=== PATIENT | male | born 1995 | race Caucasian/White ===

== ENCOUNTER 2017-08-18 11:17 | Emergency (ER) | payer MEDICAID ==
[~2017-08-18] VITALS: Ht 185.4 cm; Wt 59.0 kg
[~2017-08-18 11:17] MED LIST: ESCI20TA PO; NO HOME MEDS; TRAZ-146 PO
[2017-08-18 11:25] VITALS: BP 144/94
[2017-08-18] MEDS ORDERED: AMOX500C2 PO (12:27)
[2017-08-18] MEDS ORDERED: HYDR-3965 PO (12:27)
== END 2017-08-18 12:46 | disposition home or self-care (01) ==
LOC: ER 11:17
DX: K08.89 Other specified disorders of teeth and supporting structures (principal); J45.909 Unspecified asthma, uncomplicated; F12.10 Cannabis abuse, uncomplicated; F11.10 Opioid abuse, uncomplicated; Z88.8 Allergy status to other drugs, medicaments and biological substances; Z88.1 Allergy status to other antibiotic agents
CPT/HCPCS: 99283

== ENCOUNTER 2017-08-31 16:09 | Emergency (ER) | payer MEDICAID ==
[~2017-08-31] VITALS: Ht 182.9 cm; Wt 68.0 kg
[~2017-08-31 16:09] MED LIST changes: +AMOX500C2 PO; +HYDR-3965 PO
[2017-08-31 16:33] VITALS: BP 121/64
== END 2017-08-31 17:32 | disposition home or self-care (01) ==
LOC: ER 16:10
DX: L21.0 Seborrhea capitis (principal); J45.909 Unspecified asthma, uncomplicated; F12.10 Cannabis abuse, uncomplicated; F11.10 Opioid abuse, uncomplicated; Z79.899 Other long term (current) drug therapy
CPT/HCPCS: 99284

== ENCOUNTER 2017-09-08 21:40 | Emergency (ER) | payer MEDICAID ==
[~2017-09-08] VITALS: Ht 182.9 cm; Wt 70.1 kg
[2017-09-08 21:52] VITALS: BP 137/87
== END 2017-09-09 01:23 | disposition left against medical advice (07) ==
LOC: ER 21:40
DX: R21 Rash and other nonspecific skin eruption (principal); Z53.21 Procedure and treatment not carried out due to patient leaving prior to being seen by health care provider

== ENCOUNTER 2018-04-05 22:05 | Emergency (ER) | payer MEDICAID ==
[~2018-04-05] VITALS: Ht 185.4 cm; Wt 69.0 kg
[~2018-04-05 22:05] MED LIST changes: -AMOX500C2 PO; -HYDR-3965 PO; -TRAZ-146 PO; +TRAZ-219 PO
[2018-04-05 22:18] VITALS: BP 138/87
== END 2018-04-06 01:41 | disposition left against medical advice (07) ==
LOC: ER 22:05
DX: K13.79 Other lesions of oral mucosa (principal); Z53.21 Procedure and treatment not carried out due to patient leaving prior to being seen by health care provider

== ENCOUNTER 2018-12-02 19:26 | Emergency (ER) | payer MEDICAID ==
[~2018-12-02] VITALS: Ht 185.4 cm; Wt 75.0 kg
[2018-12-02 20:04] LABS: BASOPHILS % (AUTO) 0.6 % (0-1); EOSINOPHILS % (AUTO) 0.4 % (0-6); HEMATOCRIT 46.5 % (42.0-52.0); HEMOGLOBIN 15.9 g/dl (14.0-17.9); LYMPHOCYTES # (AUTO) 1.4 X10'3 (1.1-4.8); LYMPHOCYTES % (AUTO) 22.2 % (21-51); MEAN CORPUSCULAR HGB CONC 34.2 g/dL (33.0-36.5); MEAN CORPUSCULAR VOLUME 93.7 FL (78-98); MEAN PLATELET VOLUME 8.6 FL (7.4-10.4); MONOCYTES # (AUTO) 0.6 X10'3 (0-0.9); NEUTROPHILS # (AUTO) 4.3 X10'3 (1.8-7.7); NEUTROPHILS % (AUTO) 66.8 % (42-75); PLATELET COUNT 213 X10'3 (140-440); RED BLOOD COUNT 4.96 X10'6 (4.70-6.10); RED CELL DISTRIBUTION WIDTH 13.7 % (11.5-14.5); WHITE BLOOD COUNT 6.4 X10'3 (4.5-11.0)
[2018-12-02 20:17] LABS: ALANINE AMINOTRANSFERASE 570 U/L (12-78); ALBUMIN 4.3 G/DL (3.4-5.0); ALBUMIN/GLOBULIN RATIO 1.2 (1.1-1.5); ALKALINE PHOSPHATASE 159 IU/L (46-116); ANION GAP 10 (8-16); ASPARTATE AMINO TRANSFERASE 234 U/L (10-37); BILIRUBIN,TOTAL 0.9 MG/DL (0.1-1.0); BLOOD UREA NITROGEN 7 MG/DL (7-18); BUN/CREATININE RATIO 8.8 (5.4-32.0); CALCIUM 9.3 MG/DL (8.5-10.1); CHLORIDE 101 MMOL/L (99-107); GLUCOSE 132 MG/DL (70-104); POTASSIUM 3.7 MMOL/L (3.5-5.1); SODIUM 138 MMOL/L (135-145); TOTAL CARBON DIOXIDE 27.3 MMOL/L (24-32); eGFR > 90 ML/MIN
[2018-12-02 20:40] LABS: CLARITY,URINE CLEAR (Clear); COLOR,URINE AMBER (Yellow); GLUCOSE, URINE NEGATIVE (Neg); KETONES,URINE TRACE mg/dl (Neg); LEUKOCYTE ESTERASE ,URINE NEGATIVE (Neg); NITRITES, URINE NEGATIVE (Neg); OCCULT BLOOD,URINE SMALL (Neg); PH,URINE 8.5 (4.8-8.0); PROTEIN,URINE 30 mg/dl (Neg); UA COLLECTION TYPE CLN CATCH MIDSTREAM
[2018-12-02 20:50] LABS: LIPASE 71 U/L (73-393)
[2018-12-02 20:54] LABS: BACTERIA,URINE NONE SEEN /HPF (Neg); MUCUS STRANDS MANY /LPF (Neg); SQUAMOUS EPITHELIAL CELL,UR FEW /LPF (FEW); WBC,URINE 0-4 /HPF (0-4)
[2018-12-02] MEDS ORDERED: chlordiazePOXIDE 25mg capsule PO ONE (21:40)
[2018-12-02] MEDS ORDERED: magnesium oxide 400mg tablet PO ONE (21:40)
[2018-12-02] MEDS ORDERED: LORazepam 2 mg/ml vial IV ONE (21:40)
[2018-12-02] MEDS ORDERED: normal saline 1000ML IV soln IVB ONE (21:40)
[2018-12-02] MEDS ORDERED: PROM12.512 PO (21:42)
[2018-12-02] MEDS ORDERED: CHLO25CA10 PO (21:42)
[2018-12-02 21:44] LABS: ETHANOL 0.068 GM/DL (0.0-0.010)
[2018-12-02 22:14] LABS: MAGNESIUM 1.8 MG/DL (1.5-2.4)
[2018-12-02 22:50] VITALS: BP 130/55
== END 2018-12-02 22:54 | disposition home or self-care (01) ==
LOC: ER 19:27
DX: K29.20 Alcoholic gastritis without bleeding (principal); F10.920 Alcohol use, unspecified with intoxication, uncomplicated; J45.909 Unspecified asthma, uncomplicated; F17.200 Nicotine dependence, unspecified, uncomplicated; F12.90 Cannabis use, unspecified, uncomplicated; F11.90 Opioid use, unspecified, uncomplicated; Z79.899 Other long term (current) drug therapy; Y90.0 Blood alcohol level of less than 20 mg/100 ml
CPT/HCPCS: 36415; 80053; 80320; 81001; 83690; 83735; 85025; 85610; 96361; 96374; 99283; J2060; J7030; 96375

== ENCOUNTER 2019-11-06 10:26 | Emergency (ER) | payer MEDICAID ==
[~2019-11-06] VITALS: Ht 185.4 cm; Wt 81.3 kg
[~2019-11-06 10:26] MED LIST changes: +CHLO25CA10 PO; +PROM12.512 PO; -TRAZ-219 PO; +TRAZ-256 PO
[2019-11-06 10:52] VITALS: BP 130/74
== END 2019-11-06 12:33 | disposition left against medical advice (07) ==
LOC: ER 10:26
DX: F10.239 Alcohol dependence with withdrawal, unspecified (principal); Z53.21 Procedure and treatment not carried out due to patient leaving prior to being seen by health care provider; Y90.9 Presence of alcohol in blood, level not specified

== ENCOUNTER 2019-11-08 12:46 | Emergency (ER) | payer MEDICAID ==
[~2019-11-08] VITALS: Ht 185.4 cm; Wt 59.0 kg
[2019-11-08 13:24] LABS: BASOPHILS % (AUTO) 0.5 % (0-1); EOSINOPHILS # (AUTO) 0.1 X10'3 (0-0.9); EOSINOPHILS % (AUTO) 1.3 % (0-6); HEMATOCRIT 46.4 % (42.0-52.0); HEMOGLOBIN 15.7 g/dl (14.0-17.9); LYMPHOCYTES # (AUTO) 1.3 X10'3 (1.1-4.8); MEAN CORPUSCULAR HEMOGLOBIN 31.5 PG (27.0-31.0); MEAN CORPUSCULAR HGB CONC 33.8 g/dL (33.0-36.5); MEAN CORPUSCULAR VOLUME 93.4 FL (78-98); MEAN PLATELET VOLUME 8.7 FL (7.4-10.4); MONOCYTES # (AUTO) 0.5 X10'3 (0-0.9); MONOCYTES % (AUTO) 12.8 % (2-12); NEUTROPHILS # (AUTO) 2.2 X10'3 (1.8-7.7); NEUTROPHILS % (AUTO) 53.4 % (42-75); PLATELET COUNT 224 X10'3 (140-440); RED BLOOD COUNT 4.97 X10'6 (4.70-6.10); WHITE BLOOD COUNT 4.1 X10'3 (4.5-11.0)
[2019-11-08 13:40] LABS: ALANINE AMINOTRANSFERASE 401 U/L (12-78); ALBUMIN 4.5 G/DL (3.4-5.0); ALBUMIN/GLOBULIN RATIO 1.2 (1.1-1.5); ALKALINE PHOSPHATASE 143 IU/L (46-116); ANION GAP 7 (8-16); ASPARTATE AMINO TRANSFERASE 221 U/L (10-37); BILIRUBIN,TOTAL 0.9 MG/DL (0.1-1.0); BLOOD UREA NITROGEN 5 MG/DL (7-18); BUN/CREATININE RATIO 6.9 (5.4-32.0); CALCIUM 9.5 MG/DL (8.5-10.1); CHLORIDE 105 MMOL/L (99-107); CREATININE 0.72 MG/DL (0.60-1.10); GLUCOSE 104 MG/DL (70-104); LIPASE 63 U/L (73-393); POTASSIUM 4.3 MMOL/L (3.5-5.1); SODIUM 142 MMOL/L (135-145); TOTAL CARBON DIOXIDE 29.9 MMOL/L (24-32); TOTAL PROTEIN 8.3 G/DL (6.4-8.2); eGFR > 90 ML/MIN
[2019-11-08] MEDS ORDERED: normal saline 1000ML IV soln IV ONE (15:10)
[2019-11-08] MEDS ORDERED: thiamine 100mg/ml 2ml inj. IV ONE (15:10)
[2019-11-08] MEDS ORDERED: folic acid 1mg/0.2ml inj IV ONE (15:10)
[2019-11-08] MEDS ORDERED: LORazepam 2 mg/ml vial IV ONE ×2 (15:10→16:15)
[2019-11-08] MEDS ORDERED: ondansetron/PF 4mg/2ml inj IV ONE (15:10)
[2019-11-08 15:54] LABS: CLARITY,URINE TURBID (Clear); COLOR,URINE YELLOW (Yellow); GLUCOSE, URINE NEGATIVE (Neg); KETONES,URINE NEGATIVE (Neg); LEUKOCYTE ESTERASE ,URINE NEGATIVE (Neg); NITRITES, URINE NEGATIVE (Neg); OCCULT BLOOD,URINE NEGATIVE (Neg); PH,URINE 8.5 (4.8-8.0); PROTEIN,URINE TRACE mg/dl (Neg)
[2019-11-08 15:59] LABS: UA COLLECTION TYPE CLN CATCH MIDSTREAM
[2019-11-08 15:59] LABS: ETHANOL < 0.010 GM/DL (0.0-0.010)
[2019-11-08 16:01] LABS: SQUAMOUS EPITHELIAL CELL,UR FEW /LPF (FEW); TRANSITIONAL EPI CELLS,URINE FEW /HPF
[2019-11-08 16:03] LABS: BACTERIA,URINE NONE SEEN /HPF (Neg); MUCUS STRANDS MANY /LPF (Neg); RBC,URINE 0-2 /HPF (0-2); WBC,URINE 0-4 /HPF (0-4)
[2019-11-08 16:04] LABS: AMORPHOUS PHOSPHATES 3+
[2019-11-08 16:07] LABS: URINE AMPHETAMINE SCREEN NEGATIVE (Neg); URINE BARBITUATE SCREEN NEGATIVE (Neg); URINE BENZODIAZEPINES SCREEN NEGATIVE (Neg); URINE CANNABINOID SCREEN NEGATIVE (Neg); URINE COCAINE SCREEN NEGATIVE (Neg); URINE METHADONE SCREEN NEGATIVE (Neg); URINE OPIATE SCREEN NEGATIVE (Neg); URINE PHENCYCLIDINE SCREEN NEGATIVE (Neg)
[2019-11-08] MEDS ORDERED: GABA300C PO (16:15)
[2019-11-08] MEDS ORDERED: LORA-269 PO (16:15)
[2019-11-08 18:01] VITALS: BP 123/73
== END 2019-11-08 18:02 | disposition home or self-care (01) ==
LOC: ER 12:46
DX: F10.230 Alcohol dependence with withdrawal, uncomplicated (principal); R10.84 Generalized abdominal pain; J45.909 Unspecified asthma, uncomplicated; F12.90 Cannabis use, unspecified, uncomplicated; F11.90 Opioid use, unspecified, uncomplicated; Z72.89 Other problems related to lifestyle; Z79.899 Other long term (current) drug therapy
CPT/HCPCS: 36415; 80053; 80305; 80320; 81001; 83690; 85025; 93005; 96374; 96375; 96376; 99284; J2060; J2405; J3411; J3490; J7030

== ENCOUNTER 2019-11-20 21:03 | Emergency (ER) | payer MEDICAID ==
[~2019-11-20] VITALS: Ht 185.4 cm; Wt 81.8 kg
[~2019-11-20 21:03] MED LIST changes: +GABA300C PO; +LORA-269 PO
[2019-11-20] MEDS ORDERED: magnesium 2GM in 50ml NS 50 ML IV ONE (21:15)
[2019-11-20] MEDS ORDERED: LORazepam 2 mg/ml vial IV ONE (21:15)
[2019-11-20] MEDS ORDERED: normal saline 1000ML IV soln IVB ONE (21:15)
[2019-11-20] MEDS ORDERED: thiamine 100mg/ml 2ml inj. IV ONE (21:15)
[2019-11-20] MEDS ORDERED: folic acid 1mg/0.2ml inj IV ONE (21:15)
[2019-11-20 21:37] LABS: BASOPHILS % (AUTO) 0.4 % (0-1); EOSINOPHILS # (AUTO) 0.1 X10'3 (0-0.9); EOSINOPHILS % (AUTO) 1.1 % (0-6); HEMATOCRIT 47.6 % (42.0-52.0); HEMOGLOBIN 16.3 g/dl (14.0-17.9); LYMPHOCYTES # (AUTO) 2.2 X10'3 (1.1-4.8); LYMPHOCYTES % (AUTO) 35.8 % (21-51); MEAN CORPUSCULAR HEMOGLOBIN 31.6 PG (27.0-31.0); MEAN CORPUSCULAR HGB CONC 34.3 g/dL (33.0-36.5); MEAN CORPUSCULAR VOLUME 92.1 FL (78-98); MEAN PLATELET VOLUME 8.2 FL (7.4-10.4); MONOCYTES # (AUTO) 0.7 X10'3 (0-0.9); MONOCYTES % (AUTO) 11.4 % (2-12); NEUTROPHILS # (AUTO) 3.1 X10'3 (1.8-7.7); NEUTROPHILS % (AUTO) 51.3 % (42-75); PLATELET COUNT 237 X10'3 (140-440); RED BLOOD COUNT 5.17 X10'6 (4.70-6.10); RED CELL DISTRIBUTION WIDTH 13.8 % (11.5-14.5)
[2019-11-20 21:51] LABS: ALANINE AMINOTRANSFERASE 320 U/L (12-78); ALBUMIN 4.2 G/DL (3.4-5.0); ALBUMIN/GLOBULIN RATIO 1.1 (1.1-1.5); ALKALINE PHOSPHATASE 168 IU/L (46-116); ANION GAP 12 (8-16); ASPARTATE AMINO TRANSFERASE 256 U/L (10-37); BILIRUBIN,TOTAL 0.7 MG/DL (0.1-1.0); BLOOD UREA NITROGEN 5 MG/DL (7-18); BUN/CREATININE RATIO 5.9 (5.4-32.0); CALCIUM 8.7 MG/DL (8.5-10.1); CHLORIDE 104 MMOL/L (99-107); CREATINE KINASE 68 U/L (39-308); CREATININE 0.85 MG/DL (0.60-1.10); ETHANOL 0.157 GM/DL (0.0-0.010); GLUCOSE 101 MG/DL (70-104); POTASSIUM 3.3 MMOL/L (3.5-5.1); SODIUM 141 MMOL/L (135-145); TOTAL CARBON DIOXIDE 24.9 MMOL/L (24-32); TOTAL PROTEIN 8.2 G/DL (6.4-8.2); eGFR > 90 ML/MIN
[2019-11-20 23:44] LABS: CLARITY,URINE CLEAR (Clear); COLOR,URINE YELLOW (Yellow); GLUCOSE, URINE NEGATIVE (Neg); KETONES,URINE NEGATIVE (Neg); LEUKOCYTE ESTERASE ,URINE NEGATIVE (Neg); NITRITES, URINE NEGATIVE (Neg); OCCULT BLOOD,URINE NEGATIVE (Neg); PH,URINE 6.5 (4.8-8.0); PROTEIN,URINE NEGATIVE (Neg); UA COLLECTION TYPE NON-SPECIFIED
--- NOTE | 2019-11-21 | NUR ---
PT GIVEN A SNDWITCH , JUICE . MILK , CRACKERS, AND YOGART .HE ATE IT ALL
[2019-11-21 01:27] VITALS: BP 139/83
== END 2019-11-21 01:15 | disposition home or self-care (01) ==
LOC: ER 21:04
DX: F10.129 Alcohol abuse with intoxication, unspecified (principal); R11.0 Nausea; J45.909 Unspecified asthma, uncomplicated; F12.90 Cannabis use, unspecified, uncomplicated; F11.90 Opioid use, unspecified, uncomplicated; Z79.899 Other long term (current) drug therapy; Y90.0 Blood alcohol level of less than 20 mg/100 ml
CPT/HCPCS: 36415; 80053; 80320; 81003; 82550; 82948; 85025; 85610; 93005; 96365; 96366; 96375; 99284; J2060; J3411; J3475; J3490; J7030

== ENCOUNTER 2020-01-05 20:57 | Emergency (ER) | payer MEDICAID ==
[~2020-01-05] VITALS: Ht 185.4 cm; Wt 80.0 kg
[2020-01-05] MEDS ORDERED: normal saline 1000ml 1,000 ML IV ONE (21:05)
[2020-01-05] MEDS ORDERED: GABA300C PO (21:15)
[2020-01-05] MEDS ORDERED: LORazepam 2 mg/ml vial IV ONE (21:15)
[2020-01-05 21:32] LABS: ALANINE AMINOTRANSFERASE 251 U/L (12-78); ALBUMIN 4.7 G/DL (3.4-5.0); ALBUMIN/GLOBULIN RATIO 1.2 (1.1-1.5); ALKALINE PHOSPHATASE 160 IU/L (46-116); ANION GAP 8 (8-16); ASPARTATE AMINO TRANSFERASE 216 U/L (10-37); BILIRUBIN,TOTAL 2.4 MG/DL (0.1-1.0); BLOOD UREA NITROGEN 5 MG/DL (7-18); BUN/CREATININE RATIO 6.3 (5.4-32.0); CALCIUM 9.6 MG/DL (8.5-10.1); CHLORIDE 98 MMOL/L (99-107); GLUCOSE 99 MG/DL (70-104); POTASSIUM 3.4 MMOL/L (3.5-5.1); SODIUM 136 MMOL/L (135-145); TOTAL CARBON DIOXIDE 29.6 MMOL/L (24-32); TOTAL PROTEIN 8.5 G/DL (6.4-8.2); eGFR > 90 ML/MIN
[2020-01-05] MEDS ORDERED: ondansetron/PF 4mg/2ml inj IV ONE (21:40)
[2020-01-05 21:47] LABS: BASOPHILS % (AUTO) 0.5 % (0-1); EOSINOPHILS # (AUTO) 0.1 X10'3 (0-0.9); EOSINOPHILS % (AUTO) 1.2 % (0-6); HEMATOCRIT 47.3 % (42.0-52.0); HEMOGLOBIN 16.4 g/dl (14.0-17.9); LYMPHOCYTES # (AUTO) 1.7 X10'3 (1.1-4.8); LYMPHOCYTES % (AUTO) 25.4 % (21-51); MEAN CORPUSCULAR HEMOGLOBIN 32.3 PG (27.0-31.0); MEAN CORPUSCULAR HGB CONC 34.8 g/dL (33.0-36.5); MEAN PLATELET VOLUME 8.9 FL (7.4-10.4); MONOCYTES % (AUTO) 14.3 % (2-12); NEUTROPHILS # (AUTO) 3.9 X10'3 (1.8-7.7); NEUTROPHILS % (AUTO) 58.6 % (42-75); PLATELET COUNT 239 X10'3 (140-440); RED BLOOD COUNT 5.08 X10'6 (4.70-6.10); RED CELL DISTRIBUTION WIDTH 14.8 % (11.5-14.5); WHITE BLOOD COUNT 6.6 X10'3 (4.5-11.0)
[2020-01-05 22:01] VITALS: BP 139/95
== END 2020-01-05 21:59 | disposition home or self-care (01) ==
LOC: ER 20:58
DX: F10.239 Alcohol dependence with withdrawal, unspecified (principal); H92.03 Otalgia, bilateral; R11.10 Vomiting, unspecified; J45.909 Unspecified asthma, uncomplicated; F12.90 Cannabis use, unspecified, uncomplicated; F11.90 Opioid use, unspecified, uncomplicated; Z79.899 Other long term (current) drug therapy; Y90.9 Presence of alcohol in blood, level not specified
CPT/HCPCS: 36415; 80053; 85025; 96361; 96374; 96375; 99284; J2060; J2405; J7030; 93005

== ENCOUNTER 2020-02-08 21:44 | Emergency (ER) | payer MEDICAID ==
[~2020-02-08] VITALS: Ht 185.4 cm; Wt 81.0 kg
[2020-02-09 00:04] VITALS: BP 128/98
--- NOTE | 2020-02-11 09:43 | NUR ---
Radiology report shows fracture. Report discussed with Dr Pierre. Pt is homeless with no way to contact and no PMD.
== END 2020-02-09 00:07 | disposition home or self-care (01) ==
LOC: ER 21:45
DX: M79.671 Pain in right foot (principal); R10.84 Generalized abdominal pain; F10.10 Alcohol abuse, uncomplicated; J45.909 Unspecified asthma, uncomplicated; F17.200 Nicotine dependence, unspecified, uncomplicated; F12.90 Cannabis use, unspecified, uncomplicated; K21.9 Gastro-esophageal reflux disease without esophagitis; F11.90 Opioid use, unspecified, uncomplicated; Z72.89 Other problems related to lifestyle; Z79.899 Other long term (current) drug therapy; Z59.0 Homelessness; Y90.9 Presence of alcohol in blood, level not specified
CPT/HCPCS: 73630; 99284

== ENCOUNTER 2020-02-22 15:03 | Emergency (ER) | payer MEDICAID ==
[~2020-02-22] VITALS: Ht 185.4 cm; Wt 78.8 kg
[2020-02-22] MEDS ORDERED: LORazepam 2 mg/ml vial IV ONE (16:15)
[2020-02-22] MEDS ORDERED: normal saline 1000ML IV soln IVB ONE (16:15)
[2020-02-22] MEDS ORDERED: ondansetron/PF 4mg/2ml inj IV ONE (16:15)
[2020-02-22 16:53] LABS: BASOPHILS % (AUTO) 0.4 % (0-1); EOSINOPHILS % (AUTO) 0.3 % (0-6); HEMATOCRIT 44.7 % (42.0-52.0); HEMOGLOBIN 15.4 g/dl (14.0-17.9); LYMPHOCYTES # (AUTO) 1.3 X10'3 (1.1-4.8); LYMPHOCYTES % (AUTO) 25.2 % (21-51); MEAN CORPUSCULAR HEMOGLOBIN 33.1 PG (27.0-31.0); MEAN CORPUSCULAR HGB CONC 34.4 g/dL (33.0-36.5); MEAN CORPUSCULAR VOLUME 96.2 FL (78-98); MEAN PLATELET VOLUME 7.9 FL (7.4-10.4); MONOCYTES # (AUTO) 0.5 X10'3 (0-0.9); MONOCYTES % (AUTO) 10.6 % (2-12); NEUTROPHILS # (AUTO) 3.2 X10'3 (1.8-7.7); NEUTROPHILS % (AUTO) 63.5 % (42-75); PLATELET COUNT 190 X10'3 (140-440); RED BLOOD COUNT 4.65 X10'6 (4.70-6.10); RED CELL DISTRIBUTION WIDTH 15.4 % (11.5-14.5); WHITE BLOOD COUNT 5.1 X10'3 (4.5-11.0)
[2020-02-22 16:57] LABS: CLARITY,URINE SLIGHTLY CLOUDY (Clear); GLUCOSE, URINE NEGATIVE (Neg); KETONES,URINE 15 mg/dl (Neg); LEUKOCYTE ESTERASE ,URINE NEGATIVE (Neg); NITRITES, URINE NEGATIVE (Neg); OCCULT BLOOD,URINE NEGATIVE (Neg); PH,URINE 6.5 (4.8-8.0); PROTEIN,URINE TRACE mg/dl (Neg)
[2020-02-22 16:59] LABS: COLOR,URINE DARK YELLOW (Yellow); UA COLLECTION TYPE VOIDED
[2020-02-22 17:05] LABS: BACTERIA,URINE FEW /HPF (Neg); HYALINE CASTS 0-3 /LPF (NEGATIVE); MUCUS STRANDS MANY /LPF (Neg); RBC,URINE NONE SEEN /HPF (0-2); SQUAMOUS EPITHELIAL CELL,UR FEW /LPF (FEW); WBC,URINE 0-4 /HPF (0-4)
[2020-02-22] MEDS ORDERED: thiamine 100mg/ml 2ml inj. IV ONE (17:05)
[2020-02-22] MEDS ORDERED: folic acid 1mg/0.2ml inj IV ONE (17:05)
[2020-02-22] MEDS ORDERED: normal saline 1000ml 1,000 ML IV ONE (17:05)
[2020-02-22 17:08] LABS: ALANINE AMINOTRANSFERASE 101 U/L (12-78); ALBUMIN 4.4 G/DL (3.4-5.0); ALBUMIN/GLOBULIN RATIO 1.2 (1.1-1.5); ALKALINE PHOSPHATASE 106 IU/L (46-116); ANION GAP 10 (8-16); ASPARTATE AMINO TRANSFERASE 97 U/L (10-37); BILIRUBIN,TOTAL 0.9 MG/DL (0.1-1.0); BLOOD UREA NITROGEN 5 MG/DL (7-18); BUN/CREATININE RATIO 5.8 (5.4-32.0); CALCIUM 9.3 MG/DL (8.5-10.1); CHLORIDE 102 MMOL/L (99-107); CREATININE 0.86 MG/DL (0.60-1.10); ETHANOL 0.071 GM/DL (0.0-0.010); GLUCOSE 89 MG/DL (70-104); LIPASE < 50 U/L (73-393); MAGNESIUM 1.5 MG/DL (1.5-2.4); POTASSIUM 3.7 MMOL/L (3.5-5.1); SODIUM 142 MMOL/L (135-145); TOTAL PROTEIN 8.1 G/DL (6.4-8.2); eGFR > 90 ML/MIN
[2020-02-22] MEDS ORDERED: GABA300C PO (17:24)
[2020-02-22 17:58] VITALS: BP 160/76
== END 2020-02-22 18:00 | disposition home or self-care (01) ==
LOC: ER 15:04
DX: F10.239 Alcohol dependence with withdrawal, unspecified (principal); R53.83 Other fatigue; R11.2 Nausea with vomiting, unspecified; J45.909 Unspecified asthma, uncomplicated; F12.90 Cannabis use, unspecified, uncomplicated; F11.90 Opioid use, unspecified, uncomplicated; Z72.89 Other problems related to lifestyle; Z79.899 Other long term (current) drug therapy; Y90.0 Blood alcohol level of less than 20 mg/100 ml
CPT/HCPCS: 36415; 80053; 80320; 81001; 83690; 83735; 85025; 93005; 96361; 96374; 96375; 99284; J2060; J2405; J3411; J3490; J7030

== ENCOUNTER 2020-03-24 18:55 | Emergency (ER) | payer MEDICAID ==
[~2020-03-24] VITALS: Ht 185.4 cm; Wt 76.9 kg
[2020-03-24] MEDS ORDERED: LORazepam 2 mg/ml vial IV ONE (20:00)
[2020-03-24] MEDS ORDERED: normal saline 1000ML IV soln IVB ONE (20:00)
[2020-03-24] MEDS ORDERED: ondansetron/PF 4mg/2ml inj IV ONE (20:00)
[2020-03-24 20:12] LABS: BASOPHILS % (AUTO) 0.2 % (0-1); EOSINOPHILS % (AUTO) 0.4 % (0-6); HEMATOCRIT 47.8 % (42.0-52.0); HEMOGLOBIN 16.4 g/dl (14.0-17.9); LYMPHOCYTES # (AUTO) 1.4 X10'3 (1.1-4.8); LYMPHOCYTES % (AUTO) 17.2 % (21-51); MEAN CORPUSCULAR HEMOGLOBIN 32.3 PG (27.0-31.0); MEAN CORPUSCULAR HGB CONC 34.4 g/dL (33.0-36.5); MEAN CORPUSCULAR VOLUME 93.9 FL (78-98); MONOCYTES # (AUTO) 0.9 X10'3 (0-0.9); MONOCYTES % (AUTO) 11.1 % (2-12); NEUTROPHILS # (AUTO) 5.6 X10'3 (1.8-7.7); NEUTROPHILS % (AUTO) 71.1 % (42-75); PLATELET COUNT 177 X10'3 (140-440); RED BLOOD COUNT 5.09 X10'6 (4.70-6.10); RED CELL DISTRIBUTION WIDTH 14.1 % (11.5-14.5); WHITE BLOOD COUNT 7.9 X10'3 (4.5-11.0)
[2020-03-24 20:29] LABS: ALANINE AMINOTRANSFERASE 233 U/L (12-78); ALBUMIN/GLOBULIN RATIO 1.4 (1.1-1.5); ALKALINE PHOSPHATASE 110 IU/L (46-116); ANION GAP 12 (8-16); ASPARTATE AMINO TRANSFERASE 207 U/L (10-37); BILIRUBIN,TOTAL 1.8 MG/DL (0.1-1.0); BLOOD UREA NITROGEN 9 MG/DL (7-18); BUN/CREATININE RATIO 10.3 (5.4-32.0); CALCIUM 9.6 MG/DL (8.5-10.1); CHLORIDE 95 MMOL/L (99-107); CREATININE 0.87 MG/DL (0.60-1.10); GLUCOSE 96 MG/DL (70-104); LIPASE < 50 U/L (73-393); POTASSIUM 3.4 MMOL/L (3.5-5.1); SODIUM 136 MMOL/L (135-145); TOTAL CARBON DIOXIDE 28.8 MMOL/L (24-32); TOTAL PROTEIN 8.7 G/DL (6.4-8.2); eGFR > 90 ML/MIN
[2020-03-24] MEDS ORDERED: ONDA4TAB6 PO (20:52)
[2020-03-24] MEDS ORDERED: GABA300C PO (20:52)
[2020-03-24 21:00] VITALS: BP 186/89
== END 2020-03-24 21:10 | disposition home or self-care (01) ==
LOC: ER 18:55
DX: F10.239 Alcohol dependence with withdrawal, unspecified (principal); J45.909 Unspecified asthma, uncomplicated; F12.10 Cannabis abuse, uncomplicated; F11.10 Opioid abuse, uncomplicated; Z59.0 Homelessness; Z87.19 Personal history of other diseases of the digestive system; Z79.899 Other long term (current) drug therapy
CPT/HCPCS: 36415; 80053; 83690; 85025; 93005; 96361; 96374; 96375; 99284; J2060; J2405; J7030

== ENCOUNTER 2021-03-23 07:35 | Emergency (ER) | payer MEDICAID ==
[~2021-03-23] VITALS: Ht 182.9 cm; Wt 81.8 kg
[~2021-03-23 07:35] MED LIST changes: +ONDA4TAB6 PO
[2021-03-23] MEDS ORDERED: metoclopramide 5 mg/ml inj IV ONE (08:00)
[2021-03-23] MEDS ORDERED: famotidine/PF 10 mg/ml inj IV ONE (08:00)
[2021-03-23] MEDS ORDERED: LORazepam 2 mg/ml vial IV ONE (08:00)
[2021-03-23] MEDS ORDERED: cloNIDine 0.1 mg tablet PO ONE (08:00)
[2021-03-23] MEDS ORDERED: thiamine 100mg/ml 2ml inj. IV ONE (08:00)
[2021-03-23] MEDS ORDERED: folic acid 1mg/0.2ml inj IV ONE (08:00)
[2021-03-23] MEDS ORDERED: magnesium 2GM in 50ml NS 50 ML IV ONE (08:00)
[2021-03-23] MEDS ORDERED: normal saline 1000ML IV soln IV ONE (08:00)
--- NOTE | 2021-03-23 08:00 | NUR ---
PT REPORTING VISUAL AND AUDITORY HALLUCINATIONS.
[2021-03-23 08:39] LABS: ALANINE AMINOTRANSFERASE 165 U/L (12-78); ALBUMIN 4.7 G/DL (3.4-5.0); ALBUMIN/GLOBULIN RATIO 1.2 (1.1-1.5); ALKALINE PHOSPHATASE 123 IU/L (46-116); ANION GAP 17 (8-16); ASPARTATE AMINO TRANSFERASE 167 U/L (10-37); BILIRUBIN,TOTAL 1.8 MG/DL (0.1-1.0); BLOOD UREA NITROGEN 14 MG/DL (7-18); BUN/CREATININE RATIO 15.4 (5.4-32.0); CALCIUM 9.5 MG/DL (8.5-10.1); CHLORIDE 96 MMOL/L (99-107); CREATINE KINASE 445 U/L (39-308); CREATININE 0.91 MG/DL (0.60-1.10); ETHANOL < 0.010 GM/DL (0.0-0.010); GLUCOSE 93 MG/DL (70-104); POTASSIUM 3.4 MMOL/L (3.5-5.1); SODIUM 137 MMOL/L (135-145); TOTAL CARBON DIOXIDE 23.6 MMOL/L (24-32); TOTAL PROTEIN 8.6 G/DL (6.4-8.2); eGFR > 90 ML/MIN
[2021-03-23 08:52] LABS: BASOPHILS % (AUTO) 0.2 % (0-1); EOSINOPHILS % (AUTO) 0 % (0-6); HEMATOCRIT 44.2 % (42.0-52.0); HEMOGLOBIN 15.4 g/dl (14.0-17.9); LYMPHOCYTES # (AUTO) 0.5 X10'3 (1.1-4.8); LYMPHOCYTES % (AUTO) 10.2 % (21-51); MEAN CORPUSCULAR HEMOGLOBIN 34.2 PG (27.0-31.0); MEAN CORPUSCULAR HGB CONC 34.9 g/dL (33.0-36.5); MEAN PLATELET VOLUME 9.2 FL (7.4-10.4); MONOCYTES # (AUTO) 0.5 X10'3 (0-0.9); MONOCYTES % (AUTO) 10.4 % (2-12); NEUTROPHILS # (AUTO) 3.9 X10'3 (1.8-7.7); NEUTROPHILS % (AUTO) 79.2 % (42-75); PLATELET COUNT 111 X10'3 (140-440); RED BLOOD COUNT 4.51 X10'6 (4.70-6.10); RED CELL DISTRIBUTION WIDTH 12.9 % (11.5-14.5); WHITE BLOOD COUNT 4.9 X10'3 (4.5-11.0)
[2021-03-23] MEDS ORDERED: potassium Cl 20 mEq SR tablet PO ONE (09:20)
[2021-03-23] MEDS ORDERED: LORA-269 PO (09:24)
[2021-03-23] MEDS ORDERED: GABA300C PO (09:24)
[2021-03-23] MEDS ORDERED: ONDA4TAB6 PO (09:24)
[2021-03-23 11:10] VITALS: BP 135/70
== END 2021-03-23 11:13 | disposition home or self-care (01) ==
LOC: ER 07:36
DX: F10.239 Alcohol dependence with withdrawal, unspecified (principal); F11.20 Opioid dependence, uncomplicated; J45.909 Unspecified asthma, uncomplicated; F17.200 Nicotine dependence, unspecified, uncomplicated; F12.90 Cannabis use, unspecified, uncomplicated; Z59.00 Homelessness unspecified; Z72.89 Other problems related to lifestyle; Z79.899 Other long term (current) drug therapy; Y90.5 Blood alcohol level of 100-119 mg/100 ml
CPT/HCPCS: 36415; 80053; 80320; 82550; 82948; 83605; 83735; 85025; 93005; 96365; 96375; 99284; J2060; J2765; J3411; J3475; J3490; J7030

== ENCOUNTER 2021-04-15 07:31 | Emergency (ER) | payer MEDICAID ==
[~2021-04-15] VITALS: Ht 185.4 cm; Wt 81.8 kg
[2021-04-15 08:02] VITALS: BP 175/107
== END 2021-04-15 12:57 | disposition left against medical advice (07) ==
LOC: ER 07:32
DX: F10.129 Alcohol abuse with intoxication, unspecified (principal); Z53.21 Procedure and treatment not carried out due to patient leaving prior to being seen by health care provider; Y90.9 Presence of alcohol in blood, level not specified

== ENCOUNTER 2021-06-04 05:12 | Emergency (ER) | payer MEDICAID ==
[~2021-06-04] VITALS: Ht 185.4 cm; Wt 95.5 kg
--- NOTE | 2021-06-04 06:28 | NUR ---
Report received from MICHAEL Gray. Patient resting quietly in bed; no apparent distress.
[2021-06-04] MEDS ORDERED: CHLO25CA10 PO (06:39)
[2021-06-04] MEDS ORDERED: PROM12.512 PO (06:39)
[2021-06-04] MEDS ORDERED: chlordiazePOXIDE 25mg capsule PO ONE (06:40)
[2021-06-04] MEDS ORDERED: LORazepam 2 mg/ml vial IV ONE (06:40)
[2021-06-04] MEDS ORDERED: haloperidol lactate 5mg/ml inj IM ONE (06:40)
[2021-06-04] MEDS ORDERED: magnesium oxide 400mg tablet PO ONE (06:45)
[2021-06-04] MEDS ORDERED: magnesium 2GM in 50ml NS 50 ML IV ONE (06:45)
[2021-06-04] MEDS ORDERED: methadone 10mg tablet PO ONE (07:05)
[2021-06-04 07:28] VITALS: BP 136/91
== END 2021-06-04 07:31 | disposition home or self-care (01) ==
LOC: ER 05:12
DX: F10.239 Alcohol dependence with withdrawal, unspecified (principal); K29.20 Alcoholic gastritis without bleeding; R11.2 Nausea with vomiting, unspecified; R10.84 Generalized abdominal pain; J45.909 Unspecified asthma, uncomplicated; F17.200 Nicotine dependence, unspecified, uncomplicated; F12.90 Cannabis use, unspecified, uncomplicated; F11.90 Opioid use, unspecified, uncomplicated; Z72.89 Other problems related to lifestyle; Z59.00 Homelessness unspecified; Z79.899 Other long term (current) drug therapy; Y90.9 Presence of alcohol in blood, level not specified
CPT/HCPCS: 93005; 96372; 96374; 96375; 99284; J1630; J2060; J3475

== ENCOUNTER 2021-06-24 10:30 | Emergency (ER) | payer MEDICAID ==
[~2021-06-24] VITALS: Ht 185.4 cm; Wt 95.5 kg
[2021-06-24] MEDS ORDERED: LORazepam 2 mg/ml vial IV ONE (12:50)
[2021-06-24] MEDS ORDERED: normal saline 1000ML IV soln IVB ONE (12:50)
[2021-06-24 13:10] LABS: BASOPHILS % (AUTO) 0.5 % (0-1); EOSINOPHILS # (AUTO) 0.1 X10'3 (0-0.9); EOSINOPHILS % (AUTO) 1.4 % (0-6); HEMATOCRIT 45.7 % (42.0-52.0); HEMOGLOBIN 15.7 g/dl (14.0-17.9); LYMPHOCYTES # (AUTO) 1.7 X10'3 (1.1-4.8); LYMPHOCYTES % (AUTO) 32.5 % (21-51); MEAN CORPUSCULAR HEMOGLOBIN 34.2 PG (27.0-31.0); MEAN CORPUSCULAR HGB CONC 34.4 g/dL (33.0-36.5); MEAN CORPUSCULAR VOLUME 99.4 FL (78-98); MEAN PLATELET VOLUME 8.5 FL (7.4-10.4); MONOCYTES # (AUTO) 0.4 X10'3 (0-0.9); MONOCYTES % (AUTO) 7.4 % (2-12); NEUTROPHILS % (AUTO) 58.2 % (42-75); PLATELET COUNT 143 X10'3 (140-440); RED CELL DISTRIBUTION WIDTH 14.4 % (11.5-14.5); WHITE BLOOD COUNT 5.1 X10'3 (4.5-11.0)
[2021-06-24 13:19] LABS: ALANINE AMINOTRANSFERASE 153 U/L (12-78); ALBUMIN 4.4 G/DL (3.4-5.0); ALBUMIN/GLOBULIN RATIO 1.2 (1.1-1.5); ANION GAP 7 (8-16); ASPARTATE AMINO TRANSFERASE 156 U/L (10-37); BILIRUBIN,TOTAL 0.5 MG/DL (0.1-1.0); BLOOD UREA NITROGEN 5 MG/DL (7-18); BUN/CREATININE RATIO 6.4 (5.4-32.0); CALCIUM 8.2 MG/DL (8.5-10.1); CHLORIDE 105 MMOL/L (99-107); CREATININE 0.78 MG/DL (0.60-1.10); GLUCOSE 110 MG/DL (70-104); POTASSIUM 3.3 MMOL/L (3.5-5.1); SODIUM 144 MMOL/L (135-145); TOTAL CARBON DIOXIDE 32.4 MMOL/L (24-32); eGFR > 90 ML/MIN
[2021-06-24 13:32] LABS: ALKALINE PHOSPHATASE 103 IU/L (46-116)
[2021-06-24] MEDS ORDERED: LORA-269 PO (14:15)
[2021-06-24 14:45] VITALS: BP 130/86
== END 2021-06-24 14:47 | disposition home or self-care (01) ==
LOC: ER 10:31
DX: F10.239 Alcohol dependence with withdrawal, unspecified (principal); R56.9 Unspecified convulsions; J45.909 Unspecified asthma, uncomplicated; F17.200 Nicotine dependence, unspecified, uncomplicated; F12.90 Cannabis use, unspecified, uncomplicated; F11.90 Opioid use, unspecified, uncomplicated; F17.210 Nicotine dependence, cigarettes, uncomplicated; Z59.00 Homelessness unspecified; Z87.11 Personal history of peptic ulcer disease; Z79.899 Other long term (current) drug therapy; Y90.9 Presence of alcohol in blood, level not specified
CPT/HCPCS: 36415; 80053; 85025; 96361; 96374; 99283; J2060; J7030

== ENCOUNTER 2021-08-09 02:56 | Emergency (ER) | payer MEDICAID ==
[~2021-08-09] VITALS: Ht 185.4 cm; Wt 90.9 kg
[2021-08-09] MEDS ORDERED: LORazepam 2 mg/ml vial IV ONE ×2 (03:10→05:35)
[2021-08-09] MEDS ORDERED: metoclopramide 5 mg/ml inj IV ONE (04:30)
[2021-08-09 06:40] VITALS: BP 128/83
[2021-08-09] MEDS ORDERED: CHLO25CA10 PO ×2 (06:49→06:54)
--- NOTE | 2021-08-09 07:40 | NUR ---
Pt given and understands d/c instructions. Ambulatory with a steady gait. IV d/c'd, catheter was intact.
--- NOTE | 2021-08-09 07:46 | NUR ---
Pt given a taxi voucher.
== END 2021-08-09 07:46 | disposition home or self-care (01) ==
LOC: ER 02:56
DX: F10.239 Alcohol dependence with withdrawal, unspecified (principal); R19.7 Diarrhea, unspecified; R56.9 Unspecified convulsions; R07.89 Other chest pain; R11.2 Nausea with vomiting, unspecified; J45.909 Unspecified asthma, uncomplicated; K21.9 Gastro-esophageal reflux disease without esophagitis; F12.90 Cannabis use, unspecified, uncomplicated; F11.90 Opioid use, unspecified, uncomplicated; Z87.11 Personal history of peptic ulcer disease; Z72.89 Other problems related to lifestyle; Z59.00 Homelessness unspecified; Z79.899 Other long term (current) drug therapy; Y90.9 Presence of alcohol in blood, level not specified
CPT/HCPCS: 96374; 96375; 96376; 99284; J2060; J2765